=== PATIENT | female | born 1940 | race Caucasian/White ===

== ENCOUNTER 2021-02-27 02:04 | Emergency (ER) | payer MEDICARE, MEDICAID ==
[~2021-02-27] VITALS: Ht 160 cm; Wt 70.0 kg
[2021-02-27] MEDS ORDERED: DEXTROSE 50% WATER 50ML SYRINGE IV ONE (02:15)
[2021-02-27 03:03] LABS: BASOPHILS % 0.5 % (0.0-2.0); EOSINOPHILS % 0.4 % (0.0-5.0); HEMATOCRIT. 35.5 % (36.0-48.0); HEMOGLOBIN. 11.6 g/dL (12.0-16.0); LYMPHOCYTES % 17.3 % (20.0-50.0); MEAN CORPUSCULAR HEMOGLOBIN 26.3 pg (28.0-32.0); MEAN CORPUSCULAR VOLUME 80.6 fL (81.0-99.0); MEAN PLATELET VOLUME 8.8 fl (7.4-10.4); MONOCYTES % 5.3 % (2.0-8.0); NEUTROPHILS % 76.5 % (40.0-76.0); PLATELET 348 x1000/uL (130-400); RED BLOOD CELL COUNT 4.41 mill/uL (4.2-5.4); RED CELL DISTRIBUTION WIDTH 15.4 % (11.6-14.6)
[2021-02-27 03:08] LABS: CHLORIDE 97 mEq/L (98-107)
[2021-02-27 06:04] LABS: CLARITY URINE CLEAR (CLEAR); COLOR URINE YELLOW (YELLOW); KETONES URINE NEGATIVE (NEGATIVE); LEUKOCYTE ESTERASE URINE NEGATIVE (NEGATIVE); NITRITE URINE NEGATIVE (NEGATIVE); OCCULT BLOOD URINE NEGATIVE (NEGATIVE); PROTEIN URINE NEGATIVE (NEGATIVE); SPECIFIC GRAVITY URINE 1.013 (1.005-1.030); UROBILINOGEN URINE 0.2 E.U./dL (0.2-1.0)
[2021-02-27 06:58] VITALS: BP 130/60
== END 2021-02-27 07:05 | disposition home or self-care (01) ==
LOC: ER 02:17
DX: E11.649 Type 2 diabetes mellitus with hypoglycemia without coma (principal); I10 Essential (primary) hypertension; R53.1 Weakness
CPT/HCPCS: 36415; 80053; 81003; 82962; 85025; 93005; 96374; 99284

== ENCOUNTER 2021-09-17 10:15 | Inpatient (IN) | payer MEDICARE ==
[~2021-09-17] VITALS: Ht 154.9 cm; Wt 54.6 kg
[2021-09-17] MEDS ORDERED: SODIUM CHLORIDE 0.9% 1,000 ML IV ONE ×2 (10:45→12:00)
[2021-09-17 11:18] LABS: HEMATOCRIT. 30.7 % (36.0-48.0); HEMOGLOBIN. 10.2 g/dL (12.0-16.0); MEAN CORPUSCULAR HEMOGLOBIN 25.2 pg (28.0-32.0); MEAN CORPUSCULAR VOLUME 76.2 fL (81.0-99.0); MEAN PLATELET VOLUME 6.7 fl (7.4-10.4); PLATELET 253 x1000/uL (130-400); RED BLOOD CELL COUNT 4.03 mill/uL (4.2-5.4)
[2021-09-17 11:24] LABS: CHLORIDE 84 mEq/L (98-107)
[2021-09-17 11:57] LABS: PLATELET ESTIMATE NORMAL
[2021-09-17] MEDS ORDERED: CEFTRIAXONE 1 G PREMIX 50 ML IV SCH (14:00)
[2021-09-17] MEDS ORDERED: ACETAMINOPHEN 325MG TABLET PO PRN (14:00)
[2021-09-17] MEDS ORDERED: MAGNESIUM/ALUMINUM HYDROXIDE/SIMETHICONE 30ML UDC PO PRN (14:00)
[2021-09-17] MEDS: SODIUM CHLORIDE 0.9% 1,000 ML IV SCH (14:00)
[2021-09-17] MEDS ORDERED: DEXTROSE 50% WATER 50ML SYRINGE IV PRN (14:00)
[2021-09-17] MEDS ORDERED: DIPHENHYDRAMINE 50MG/ML VIAL IV PRN (14:00)
[2021-09-17] MEDS ORDERED: DOCUSATE SODIUM 100MG CAPSULE PO PRN (14:00)
[2021-09-17] MEDS ORDERED: ONDANSETRON HCL 4MG/2ML INJ IV PRN (14:00)
[2021-09-17] MEDS ORDERED: NA PHOS,M-B/NA PHOS,DI-BA ENEMA 118ML PR PRN (14:00)
[2021-09-17] MEDS ORDERED: HYDROCODONE/ACETAMINOPHEN 5/325MG TABLET PO PRN (14:00)
[2021-09-17] MEDS ORDERED: ACETAMINOPHEN 650MG SUPP PR PRN (14:00)
[2021-09-17 14:38] LABS: CHLORIDE 86 mEq/L (98-107)
[2021-09-17 14:46] LABS: CREATINE KINASE 139 IU/L (26-192)
[2021-09-17] MEDS: ENOXAPARIN 40MG/0.4ML SYR SUBCUT SCH (16:24)
[2021-09-17] MEDS: FAMOTIDINE 20MG/2ML VIAL IV SCH (16:24)
[2021-09-17 17:21] LABS: CLARITY URINE CLOUDY (CLEAR); COLOR URINE YELLOW (YELLOW); KETONES URINE TRACE (NEGATIVE); LEUKOCYTE ESTERASE URINE 1+ (NEGATIVE); NITRITE URINE NEGATIVE (NEGATIVE); OCCULT BLOOD URINE TRACE (NEGATIVE); PH URINE 7.5 (4.5-8.0); PROTEIN URINE 1+ (NEGATIVE); UROBILINOGEN URINE 0.2 E.U./dL (0.2-1.0)
[2021-09-17 17:32] LABS: SODIUM URINE RANDOM 114 mEq/L
[2021-09-17] MEDS: INSULIN LISPRO 100 UNITS/ML SUBCUT SCH ×2 (19:25→23:04)
[2021-09-17] MEDS: BLOOD SUGAR DIAGNOSTIC STRIP TEST SCH ×2 (19:25→23:04)
[2021-09-17 23:38] LABS: CREATINE KINASE 165 IU/L (26-192)
[2021-09-18] MEDS: SODIUM CHLORIDE 0.9% 1,000 ML IV SCH ×3 (01:27→21:48)
[2021-09-18 06:16] LABS: CHLORIDE 87 mEq/L (98-107)
[2021-09-18] MEDS: BLOOD SUGAR DIAGNOSTIC STRIP TEST SCH ×4 (06:49→21:00)
[2021-09-18] MEDS: INSULIN LISPRO 100 UNITS/ML SUBCUT SCH ×4 (06:50→21:00)
[2021-09-18 09:30] VITALS: BP 161/89
[2021-09-18] MEDS: FAMOTIDINE 20MG/2ML VIAL IV SCH (09:56)
[2021-09-18 10:00] VITALS: BP 161/89
[2021-09-18 10:37] LABS: HEMATOCRIT. 33.5 % (36.0-48.0); HEMOGLOBIN. 10.8 g/dL (12.0-16.0); MEAN CORPUSCULAR HEMOGLOBIN 25.2 pg (28.0-32.0); MEAN CORPUSCULAR VOLUME 78.3 fL (81.0-99.0); RED BLOOD CELL COUNT 4.28 mill/uL (4.2-5.4)
[2021-09-18 10:39] LABS: PLATELET 190 x1000/uL (130-400)
[2021-09-18] MEDS ORDERED: LISI-186 PO (10:52)
[2021-09-18] MEDS ORDERED: OMEP20CA14 PO (10:52)
[2021-09-18] MEDS ORDERED: ATOR40TA70 PO (10:52)
[2021-09-18] MEDS ORDERED: METF-416 PO (10:52)
[2021-09-18] MEDS ORDERED: GLIP10TA10 PO (10:52)
[2021-09-18 11:30] LABS: PLATELET ESTIMATE NORMAL
[2021-09-18 11:55] VITALS: BP 147/85
[2021-09-18] MEDS ORDERED: SODIUM CHLORIDE 3% 160 ML IV NR (12:00)
[2021-09-18] MEDS: ENOXAPARIN 40MG/0.4ML SYR SUBCUT SCH (15:46)
[2021-09-18 16:00] VITALS: BP 171/94
[2021-09-18] MEDS ORDERED: FUROSEMIDE 40MG/4ML VIAL IVP NR (16:00)
[2021-09-18] MEDS: CLONIDINE 0.1MG TABLET PO PRN (16:33)
[2021-09-18] MEDS ORDERED: CEFTRIAXONE 1 G PREMIX 50 ML IV SCH (16:45)
[2021-09-18] MEDS: CEFTRIAXONE 1,000 MG in DEXTROSE 5% WATER 50 ML IV SCH (18:44)
[2021-09-18 20:00] VITALS: BP 154/90
[2021-09-18 20:54] LABS: PROTHROMBIN TIME 10.4 sec (9.6-11.0)
[2021-09-18 21:05] LABS: CHLORIDE 92 mEq/L (98-107)
[2021-09-18] MEDS: AMLODIPINE 5MG TABLET PO SCH (21:47)
[2021-09-19] VITALS: BP 141/81
[2021-09-19 04:00] VITALS: BP 138/72
[2021-09-19] MEDS: SODIUM CHLORIDE 0.9% 1,000 ML IV SCH (05:46)
[2021-09-19 06:04] LABS: BASOPHILS % 0.7 % (0.0-2.0); EOSINOPHILS % 0.1 % (0.0-5.0); HEMATOCRIT. 32.1 % (36.0-48.0); HEMOGLOBIN. 10.8 g/dL (12.0-16.0); LYMPHOCYTES % 19.6 % (20.0-50.0); MEAN CORPUSCULAR HEMOGLOBIN 25.1 pg (28.0-32.0); MEAN CORPUSCULAR VOLUME 74.9 fL (81.0-99.0); MEAN PLATELET VOLUME 7.6 fl (7.4-10.4); MONOCYTES % 12.9 % (2.0-8.0); NEUTROPHILS % 66.7 % (40.0-76.0); PLATELET 216 x1000/uL (130-400); RED BLOOD CELL COUNT 4.29 mill/uL (4.2-5.4); RED CELL DISTRIBUTION WIDTH 14.9 % (11.6-14.6)
[2021-09-19 06:24] LABS: CHLORIDE 92 mEq/L (98-107)
[2021-09-19] MEDS: BLOOD SUGAR DIAGNOSTIC STRIP TEST SCH ×4 (06:31→21:25)
[2021-09-19] MEDS: INSULIN LISPRO 100 UNITS/ML SUBCUT SCH ×4 (07:43→21:46)
[2021-09-19 08:00] VITALS: BP 137/76
[2021-09-19] MEDS: AMLODIPINE 5MG TABLET PO SCH ×3 (09:35→21:36)
[2021-09-19] MEDS: FAMOTIDINE 20MG/2ML VIAL IV SCH (09:35)
[2021-09-19 12:00] VITALS: BP 130/69
[2021-09-19] MEDS: ENOXAPARIN 40MG/0.4ML SYR SUBCUT SCH (14:37)
[2021-09-19 16:00] VITALS: BP 138/77
[2021-09-19] MEDS ORDERED: NALOXONE HCL 0.4MG/ML VIAL IV PRN (16:45)
[2021-09-19 19:59] VITALS: BP 131/72
[2021-09-19] MEDS: CEFTRIAXONE 1,000 MG in DEXTROSE 5% WATER 50 ML IV SCH (21:36)
[2021-09-19] MEDS: LORAZEPAM 0.5MG TABLET PO PRN (21:36)
[2021-09-19] MEDS: IPRATROPIUM/ALBUTEROL 0.5-3(2.5)MG/3ML NEB NEB PRN (22:54)
[2021-09-20] VITALS: BP 146/75
[2021-09-20] MEDS: LORAZEPAM 2MG/ML CPJ IV PRN ×2 (00:13→23:41)
[2021-09-20] MEDS: SODIUM CHLORIDE 0.9% 1,000 ML IV SCH ×2 (00:14→02:00)
[2021-09-20 04:00] VITALS: BP 171/91
[2021-09-20] MEDS: CLONIDINE 0.1MG TABLET PO PRN (05:29)
[2021-09-20 06:36] LABS: BASOPHILS % 0.8 % (0.0-2.0); EOSINOPHILS % 0.2 % (0.0-5.0); HEMATOCRIT. 31.3 % (36.0-48.0); HEMOGLOBIN. 10.4 g/dL (12.0-16.0); LYMPHOCYTES % 21.3 % (20.0-50.0); MEAN CORPUSCULAR HEMOGLOBIN 25.1 pg (28.0-32.0); MEAN CORPUSCULAR VOLUME 75.5 fL (81.0-99.0); MEAN PLATELET VOLUME 7.3 fl (7.4-10.4); MONOCYTES % 10.5 % (2.0-8.0); NEUTROPHILS % 67.2 % (40.0-76.0); PLATELET 221 x1000/uL (130-400); RED BLOOD CELL COUNT 4.15 mill/uL (4.2-5.4); RED CELL DISTRIBUTION WIDTH 15.3 % (11.6-14.6)
[2021-09-20 06:48] LABS: CHLORIDE 98 mEq/L (98-107)
[2021-09-20] MEDS: BLOOD SUGAR DIAGNOSTIC STRIP TEST SCH ×4 (07:38→21:24)
[2021-09-20 08:00] VITALS: BP 166/90
[2021-09-20] MEDS: FAMOTIDINE 20MG/2ML VIAL IV SCH (09:13)
[2021-09-20] MEDS: AMLODIPINE 5MG TABLET PO SCH ×2 (09:14→19:52)
[2021-09-20] MEDS: INSULIN LISPRO 100 UNITS/ML SUBCUT SCH ×4 (09:15→21:00)
[2021-09-20] MEDS ORDERED: METOPROLOL TARTRATE 50MG TABLET PO NR (11:45)
[2021-09-20] MEDS ORDERED: POTASSIUM CHLORIDE 20MEQ TABLET SR PO NR (11:45)
[2021-09-20 12:00] VITALS: BP 117/66
[2021-09-20] MEDS: ENOXAPARIN 40MG/0.4ML SYR SUBCUT SCH (14:44)
[2021-09-20 16:00] VITALS: BP 155/81
[2021-09-20] MEDS: LORAZEPAM 0.5MG TABLET PO PRN (19:52)
[2021-09-20] MEDS: METOPROLOL TARTRATE 50MG TABLET PO SCH (19:52)
[2021-09-20] MEDS: GUAIFENESIN 200MG/10ML SUGAR FREE UDC PO PRN (19:57)
[2021-09-20 20:00] VITALS: BP 121/58
[2021-09-20] MEDS: CEFTRIAXONE 1,000 MG in DEXTROSE 5% WATER 50 ML IV SCH (21:18)
[2021-09-21] VITALS: BP 144/84
[2021-09-21] MEDS: IPRATROPIUM/ALBUTEROL 0.5-3(2.5)MG/3ML NEB NEB PRN (00:08)
[2021-09-21 04:00] VITALS: BP 144/90
[2021-09-21 06:27] LABS: HEMATOCRIT. 29.5 % (36.0-48.0); MEAN CORPUSCULAR HEMOGLOBIN 25.3 pg (28.0-32.0); MEAN CORPUSCULAR VOLUME 74.7 fL (81.0-99.0); MEAN PLATELET VOLUME 7.3 fl (7.4-10.4); PLATELET 229 x1000/uL (130-400); RED BLOOD CELL COUNT 3.94 mill/uL (4.2-5.4); RED CELL DISTRIBUTION WIDTH 15.1 % (11.6-14.6)
[2021-09-21 06:40] LABS: CHLORIDE 98 mEq/L (98-107)
[2021-09-21 08:00] VITALS: BP 109/52
[2021-09-21] MEDS: BLOOD SUGAR DIAGNOSTIC STRIP TEST SCH ×2 (08:05→12:02)
[2021-09-21] MEDS: AMLODIPINE 5MG TABLET PO SCH (09:00)
[2021-09-21] MEDS: METOPROLOL TARTRATE 50MG TABLET PO SCH (09:00)
[2021-09-21] MEDS: INSULIN LISPRO 100 UNITS/ML SUBCUT SCH ×2 (09:18→12:41)
[2021-09-21] MEDS: FAMOTIDINE 20MG/2ML VIAL IV SCH (09:19)
[2021-09-21 12:00] VITALS: BP 141/78
[2021-09-21] MEDS: GUAIFENESIN 200MG/10ML SUGAR FREE UDC PO PRN (12:42)
[2021-09-21 13:13] VITALS: BP 141/78
[2021-09-21 16:09] LABS: PLATELET ESTIMATE NORMAL
== END 2021-09-21 14:20 | disposition home health service (06) | DRG 644 ==
LOC: ER 10:28 → SUPCPDRO 13:46 → MICUSO 14:23 → 6WST 09-18 09:08
PROVIDERS: ADMIT Internal Medicine; ATTEND Internal Medicine
DX: E22.2 Syndrome of inappropriate secretion of antidiuretic hormone (principal); G96.08 Other cranial cerebrospinal fluid leak; N39.0 Urinary tract infection, site not specified; G93.40 Encephalopathy, unspecified; D18.1 Lymphangioma, any site; E11.65 Type 2 diabetes mellitus with hyperglycemia; F03.90 Unspecified dementia, unspecified severity, without behavioral disturbance, psychotic disturbance, mood disturbance, and anxiety; M48.00 Spinal stenosis, site unspecified; M47.9 Spondylosis, unspecified; I10 Essential (primary) hypertension; Z20.822 Contact with and (suspected) exposure to COVID-19; M85.80 Other specified disorders of bone density and structure, unspecified site; S53.125A Posterior dislocation of left ulnohumeral joint, initial encounter; X58.XXXA Exposure to other specified factors, initial encounter; D64.9 Anemia, unspecified; D72.825 Bandemia; Z86.73 Personal history of transient ischemic attack (TIA), and cerebral infarction without residual deficits; Y93.89 Activity, other specified; Y92.89 Other specified places as the place of occurrence of the external cause; Y99.8 Other external cause status
CPT/HCPCS: 36415; 71045; 73070; 74176; 76700; 78227; 80048; 80053; 81003; 82140; 82550; 82962; 83930; 83935; 84145; 84300; 84443; 84484; 85025; 87426; 93005; 93970; 94640; 97162; 99291; A9537; J0696; J1650; J1815; J1940; J2060; J3490; J7030; J7060; A4315